=== PATIENT | male | born 1965 | race Caucasian/White ===

== ENCOUNTER 2017-01-19 11:48 | Outpatient (CLI) | payer OTHER | END 2017-01-19 11:49 | disposition home or self-care (01) | LOC: LABBT 11:48 | PROVIDERS: ATTEND Orthopaedic Surgery | DX: Z01.818 Encounter for other preprocedural examination (principal); T84.84XA Pain due to internal orthopedic prosthetic devices, implants and grafts, initial encounter; S62.001K Unspecified fracture of navicular [scaphoid] bone of right wrist, subsequent encounter for fracture with nonunion | CPT/HCPCS: 93005; 93010 ==

== ENCOUNTER → 2017-01-20 | Day surgery (SDC) | payer OTHER ==
[2017-01-19 12:05] VITALS: BMI 29.8
[~2017-01-20] MED LIST: Fentanyl 100 MCG/2 ML VIAL ONE; Fentanyl 250 MCG/5 ML VIAL ONE; HYDROcodone/Acetaminophen 5/325 mg Tablet ONE; Lidocaine 1% (PF) 30 ML VIAL ONE; Lidocaine 2% w/Epinephrine 1:200K 20 ML VIAL ONE; Midazolam HCl 2 mg/2 ml Vial ONE; Ondansetron HCl/PF 4 MG/2 ML Vial ONE
--- NOTE | 2017-01-20 19:01 | OP ---
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 PROCEDURES: 1. Excision of the scaphoid. 2. Removal of hardware. 3. Capitate, lunate, triquetrum and hamate fusion with bone graft. SURGEON: Mo Perez M.D. OPERATIVE NOTE: The patient was brought to the operating room and after administration of general an esthetic intubation, the right upper extremity was prepped and draped in the usual fashion and the to urniquet was inflated. A straight longitudinal incision was made centered over the mid dorsal wrist and the extensor pollici s longus was released from its compartment. The interval between the second and fourth compartments was opened up and the posterior interosseous nerve was identified and resected with a cautery. A cap sulotomy was then performed and there was noted to be some hypertrophic pathologic appearing synovium , which was removed with a rongeur. The scaphoid was identified under fluoroscopy and then removed p iecemeal with a rongeur after osteotomizing it with an osteotome. The headless screw that was presen t was found and removed along with the scaphoid. The lunate and capitate were identified and the car tilage was taken off of the articular surface of the capitate and the lunate articular surface that w as adjacent to the capitate. Similarly, the cartilage was taken down between the hamate and the capi padron and the triquetrum and the hamate in the triquetrum and the lunate. The wrist was then flexed a nd the lunate was flexed and pinned with a 0.062 K-wire to the radius to correct a DISI deformity. U sing fluoroscopy, a guidepin was drilled from the capitate into the lunate. The cannulated drill was used to drill a hole through the capitate into the lunate and a headless screw was then inserted. S imilarly, a headless screw was inserted from the triquetrum into the lunate and from the capitate int o the hamate. The position was checked under fluoroscopy and appeared to be satisfactory and the pin was removed from the radial lunate joint. Augusto's tubercle was then removed and bone graft was sandra vested from the radial styloid and packed into the spaces between the different carpal bones. Perman ent x-rays were taken and the capsule was loosely approximated over the carpal bones. The skin was c losed with nylon after infiltrating with Xylocaine with epinephrine. A well-padded dressing with a l reza arm plaster splint was applied and the patient was taken to recovery room in satisfactory conditi on. He was monitored when he was awake and alert. He was placed in a sling and shown how to use ice pack s, given a prescription for pain medication and then discharged home.
--- NOTE | 2017-01-22 11:27 | RAD ---
RIGHT WRIST 3 VIEWS: Date: 01/22/17 HISTORY: 51-year-old male with history of scaphoid fusion surgery. FINDINGS: Multiple (7) portable fluoroscopic spot images are performed intraoperatively. There appears to be re section of the scaphoid bone. There are multiple internal fixation screws stabilizing the remainder o f the carpal bones, including lunate, triquetrum, hamate, and capitate. IMPRESSION: Status post scaphoid bone resection with multiple internal fixation screws stabilizing the capitate, lunate, triquetrum, and hamate bones. POS: MIKEY
== END ==
LOC: SDC 10:08
PROVIDERS: ATTEND Orthopaedic Surgery
PROC: 0RGN04Z Fusion of Right Wrist Joint with Internal Fixation Device, Open Approach (ICD-10-PCS; principal; 2017-01-20)
PROC: 0XP60YZ Removal of Other Device from Right Upper Extremity, Open Approach (ICD-10-PCS; principal; 2017-01-20)
PROC: 0RGN07Z Fusion of Right Wrist Joint with Autologous Tissue Substitute, Open Approach (ICD-10-PCS; principal; 2017-01-20)
DX: S62.001K Unspecified fracture of navicular [scaphoid] bone of right wrist, subsequent encounter for fracture with nonunion (principal); M19.131 Post-traumatic osteoarthritis, right wrist; T84.84XA Pain due to internal orthopedic prosthetic devices, implants and grafts, initial encounter; Z98.890 Other specified postprocedural states
CPT/HCPCS: 96374; C1713; J0131; J1170; J2001; J2250; J2405; J3010

== ENCOUNTER → 2017-06-07 | Day surgery (SDC) | payer OTHER ==
[2017-06-04 08:59] VITALS: BMI 29.2
[~2017-06-07] MED LIST changes: -Fentanyl 100 MCG/2 ML VIAL ONE; -Fentanyl 250 MCG/5 ML VIAL ONE; -HYDROcodone/Acetaminophen 5/325 mg Tablet ONE; -Lidocaine 1% (PF) 30 ML VIAL ONE; -Lidocaine 2% w/Epinephrine 1:200K 20 ML VIAL ONE; +Metoprolol Tartrate 5 MG/5 ML VIAL ONE; -Ondansetron HCl/PF 4 MG/2 ML Vial ONE
== END ==
LOC: SDC 10:06
PROVIDERS: ATTEND Orthopaedic Surgery
DX: T84.84XA Pain due to internal orthopedic prosthetic devices, implants and grafts, initial encounter; S62.001K Unspecified fracture of navicular [scaphoid] bone of right wrist, subsequent encounter for fracture with nonunion; Z53.09 Procedure and treatment not carried out because of other contraindication
CPT/HCPCS: J2250

== ENCOUNTER 2017-06-23 09:35 | Outpatient (CLI) | payer OTHER | END 2017-06-23 09:36 | disposition home or self-care (01) | LOC: LABBT 09:35 | PROVIDERS: ATTEND Orthopaedic Surgery | DX: Z01.818 Encounter for other preprocedural examination (principal); T84.84XA Pain due to internal orthopedic prosthetic devices, implants and grafts, initial encounter; S62.001K Unspecified fracture of navicular [scaphoid] bone of right wrist, subsequent encounter for fracture with nonunion ==

== ENCOUNTER 2017-06-24 06:15 | Day surgery (SDC) | payer OTHER ==
[2017-06-23 09:48] VITALS: BMI 29.2
[2017-06-24] MEDS ORDERED: Fentanyl 100 MCG/2 ML VIAL ONE ×3 (07:16→09:00)
[2017-06-24] MEDS ORDERED: Midazolam HCl 2 mg/2 ml Vial ONE ×2 (07:16→08:20)
[2017-06-24] MEDS ORDERED: HYDROcodone/Acetaminophen 5/325 mg Tablet PO PRN ×2 (07:28)
[2017-06-24] MEDS ORDERED: Ondansetron HCl/PF 4 MG/2 ML Vial IVP PRN (07:28)
[2017-06-24] MEDS ORDERED: Ropivacaine 0.2% 550 ML 550 ML NERVE BLCK SCH (07:28)
[2017-06-24] MEDS ORDERED: Ketorolac Tromethamine 30 MG/ML VIAL IVP PRN (07:28)
[2017-06-24] MEDS ORDERED: Promethazine HCl 25 MG/ML VIAL IM PRN (07:28)
[2017-06-24] MEDS ORDERED: Zolpidem Tartrate 5 MG TAB PO PRN (07:28)
[2017-06-24] MEDS ORDERED: traMADol HCl 50 MG TAB PO PRN ×2 (07:28)
[2017-06-24] MEDS ORDERED: Fentanyl 100 MCG/2 ML VIAL IV PRN (07:31)
[2017-06-24] MEDS ORDERED: Lidocaine 1% (PF) 30 ML VIAL ONE (08:10)
[2017-06-24] MEDS ORDERED: Fentanyl 250 MCG/5 ML VIAL ONE (08:20)
[2017-06-24] MEDS ORDERED: Promethazine HCl 25 MG/ML VIAL ONE (09:01)
--- NOTE | 2017-06-24 12:39 | RAD ---
RIGHT WRIST TWO VIEWS: History: Hardware removal. Comparison: 12-10-16 FINDINGS: A series of 7 C-arm films are presented for interpretation. There has been previous resection of the scaphoid. On the previous examination there were three fixation screws transfixing the capitate, maria elena te, triquetrum and hamate bones on these images, only two screws are present. IMPRESSION: Interval removal of one of the fixation screws in the carpal bone region. POS: MIKEY
[2017-06-24] MEDS ORDERED: Ropivacaine 0.2% HCl/PF (40 MG/20 ML VIAL) ONE (12:46)
[2017-06-24] MEDS ORDERED: Ropivacaine 0.5% HCl/PF (150 MG/30 ML VIAL) ONE (12:46)
[2017-06-24] MEDS ORDERED: PHENYLEPHRINE-NS 100 MCG/ML 10 ML SYRINGE ONE (12:59)
[2017-06-24] MEDS ORDERED: PROPOFOL 200 MG/20 ML VIAL ONE (12:59)
[2017-06-24] MEDS ORDERED: Dexamethasone 20 MG/5 ML VIAL ONE (12:59)
--- NOTE | 2017-06-24 23:29 | OP ---
DATE OF SURGERY: 06/24/2017 PREOPERATIVE DIAGNOSIS: Nonunion of partial wrist arthrodesis. POSTOPERATIVE DIAGNOSIS: Nonunion of partial wrist arthrodesis. PROCEDURE: Re-fusion of the lunate to the triquetrum and the triquetrum to the hamate and the hamate to the capitate. The capitolunate fusion did work, which is the most important part of the fusion. SURGEON: Mo Perez M.D. DESCRIPTION OF PROCEDURE: The patient was brought to the operating room and after administration of general anesthetic intubation, the right upper extremity was prepped and draped in the usual fashion and the tourniquet was inflated. A straight longitudinal incision was made over the mid dorsal aspect of the wrist and the subcutaneou s tissues were divided and flaps were reflected. The extensor pollicis longus was released from its sheath and the fourth dorsal compartment was sharply reflected off of the distal forearm and wrist ca psule. The wrist joint was opened and the capitolunate joint was found to be well fused. The headle ss screw going from the capitate to the lunate was identified and removed after putting a guidepin in it and taking out with a screwdriver. The headless screw going from the triquetrum to the lunate wa s identified through a separate incision over the ulnar side of the wrist taking care to retract the extensor carpi ulnaris out of the way and protect the dorsal sensory branch of the ulnar nerve. A gu idepin was placed and the screw was partially removed to expose the joint. Similarly, the headless s crew going from the capitate into the hamate was partially removed again to identify the joint. Ther e appeared to be radiolucency between the hamate and the capitate, the hamate and the triquetrum, and the triquetrum and the lunate. These areas were cleaned out with a curette and rongeur. Although t his seemed to be the nonunion, I did not detect any motion between any of the bones. A bone graft was then harvested from the olecranon. A straight longitudinal incision was made along the subcutaneous border of the proximal ulna just distal to the olecranon. The olecranon was opened with the osteotome and mallet and cancellous bone was taken out. This was then set aside for later u se. Next, the headless screws which have been partially removed were taken out the rest of the way a nd longer screws were placed first from the triquetrum into the lunate and then from the capitate int o the hamate. The screws had good purchase and were checked to be sure that crossed the appropriate joints in multiple views with fluoroscopy. The cancellous bone was then packed firmly into the space s that had been cleaned out between the 4 bones. Before doing this, the wound was irrigated. The ca psule and retinaculum were then reapproximated with 2-0 Vicryl. The wound was irrigated again and th e skin was closed with nylon. The bone graft site was irrigated out and closed in two layers with Vi cryl and nylon. A well-padded dressing with a plaster splint was applied and the patient was taken t o recovery room in satisfactory condition. He was monitored. When he was awake and stable, he was discharged home. He was given prescription f or pain medication, wound care instructions, and followup appointment.
== END 2017-06-24 13:55 | disposition home or self-care (01) ==
LOC: SDC 06:15
PROVIDERS: ATTEND Orthopaedic Surgery
PROC: 0RGN04Z Fusion of Right Wrist Joint with Internal Fixation Device, Open Approach (ICD-10-PCS; principal; 2017-06-24)
PROC: 2W5 Placement, Anatomical Regions, Removal (ICD-10-PCS; principal; 2017-06-24)
PROC: 0RGN07Z Fusion of Right Wrist Joint with Autologous Tissue Substitute, Open Approach (ICD-10-PCS; principal; 2017-06-24)
DX: S62.001K Unspecified fracture of navicular [scaphoid] bone of right wrist, subsequent encounter for fracture with nonunion (principal); Z98.890 Other specified postprocedural states
CPT/HCPCS: 76001; A4306; C1713; J1100; J2001; J2250; J2550; J2704; J2795; J3010